=== PATIENT | female | born 1945 ===

== ENCOUNTER 2018-05-28 17:51 | Inpatient (IN) | payer MEDICAID, OTHER ==
--- NOTE | 2018-05-28 18:10 | ED PDOC ---
HPI: Seizure Time Seen by Provider: 05/28/18 18:07 Chief Complaint (Nursing): Altered Mental Status Chief Complaint (Provider): Seizure History Per: EMS, Family Additional Complaint(s): Pt BIBA after having witnessed seizure at PMD's office @ 5 PM today, foaming at mouth, + urinary incontinence. Daughter states pt c/o CANSECO since last PM, no paresthesias, no weaknesss. Pt has h/o headaches in past. Past Medical History Reviewed: Nursing Documentation, Vital Signs Vital Signs: Last Vital Signs Temp 98.7 F 05/30/18 12:00 Pulse 61 05/30/18 12:00 Resp 16 05/30/18 12:00 BP 132/61 05/30/18 12:00 Pulse Ox 94 L 05/30/18 12:00 - Medical History PMH: HTN - Family History Family History: States: Unknown Family Hx - Living Arrangements Living Arrangements: With Family - Social History Current smoker - smoking cessation education provided: No Alcohol: None - Home Medications Home Medications: Ambulatory Orders Medication Instructions Recorded Allopurinol [Zyloprim] 100 mg PO DAILY 05/28/18 Ranitidine HCl [Zantac] 150 mg PO QPM 05/28/18 amLODIPine [Norvasc] 2.5 mg PO DAILY 05/28/18 Acetaminophen [Tylenol 325mg tab] 650 mg PO Q6H PRN tab 05/30/18 Lidocaine 5% [Lidoderm] 1 ea TD DAILY #30 patch 05/30/18 traMADol [Ultram] 50 mg PO TID PRN #15 tab 05/30/18 - Allergies Allergies/Adverse Reactions: Allergies Allergy/AdvReac Type Severity Reaction Status Date / Time No Known Allergies Allergy Verified 05/28/18 17:55 Review of Systems Review Of Systems: ROS cannot be obtained secondary to pt's inabilty to answer questions. Physical Exam - Reviewed Nursing Documentation Reviewed: Yes Vital Signs Reviewed: Yes - Physical Exam Appears: Positive for: No Acute Distress (Postictal) Head Exam: Positive for: ATRAUMATIC, NORMAL INSPECTION Skin: Positive for: Normal Color, Warm, Dry Eye Exam: Positive for: Normal appearance, EOMI, PERRL Cardiovascular/Chest: Positive for: Regular Rate, Rhythm Respiratory: Positive for: Normal Breath Sounds. 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 Negative for: Alert, Oriented, Facial Droop - Laboratory Results Result Diagrams: 05/30/18 04:32 05/30/18 04:32 - ECG O2 Sat by Pulse Oximetry: 98 - Critical Care Total Time (In Min): 30 Disposition - Clinical Impression Clinical Impression: Hyponatremia, Seizure - Disposition Disposition: Transfer of Care Disposition Time: 19:00 Condition: STABLE Patient Signed Over To: Carlita Prince Handoff Comments: Pending labs.
--- NOTE | 2018-05-28 18:31 | CT ---
PROCEDURE: CT HEAD WITHOUT CONTRAST. HISTORY: New onset seizure COMPARISON: None available. TECHNIQUE: Axial computed tomography images were obtained through the head/brain without intravenous contrast. Radiation dose: Total exam DLP = 823.4 mGy-cm. This CT exam was performed using one or more of the following dose reduction techniques: Automated exposure control, adjustment of the mA and/or kV according to patient size, and/or use of iterative reconstruction technique. FINDINGS: HEMORRHAGE: No intracranial hemorrhage. BRAIN: No mass effect or edema. No atrophy or chronic microvascular ischemic changes. VENTRICLES: Unremarkable. No hydrocephalus. CALVARIUM: Unremarkable. PARANASAL SINUSES: Right maxillary sinus mucosal thickening. MASTOID AIR CELLS: Unremarkable as visualized. No inflammatory changes. OTHER FINDINGS: None. IMPRESSION: No acute intracranial pathology. Right maxillary sinus disease.
--- NOTE | 2018-05-28 19:33 | ED PDOC ---
- Laboratory Results Result Diagrams: 05/28/18 18:11 05/28/18 19:12 - ECG O2 Sat by Pulse Oximetry: 98 - Progress Re-evaluation Time: 20:00 Condition: Re-examined, Improved Medical Decision Making Medical Decision Making: Time: 1899 --Patient is endorsed to provider by Dr. Galicia, pending CT head/lab results and final disposition. Time: 1828 --CT head FINDINGS: HEMORRHAGE: No intracranial hemorrhage. BRAIN: No mass effect or edema. No atrophy or chronic microvascular ischemic changes. VENTRICLES: Unremarkable. No hydrocephalus. CALVARIUM: Unremarkable. PARANASAL SINUSES: Right maxillary sinus mucosal thickening. MASTOID AIR CELLS: Unremarkable as visualized. No inflammatory changes. OTHER FINDINGS: None. IMPRESSION: No acute intracranial pathology. Right maxillary sinus disease. Time: 2055 --Labs reviewed: Hypernatremia at 125 sodium. --Discussed case with Dr. Amaro, neurologist, whom agrees with admission. Recommends NS and potassium but no anti-seizure medications. --Will admit patient with neuro checks in ICU. --Discussed case with Dr. Eid, hospitalist. Scribe Attestation: Documented by Radha Montoya, acting as a scribe for Carlita Prince MD. Provider Scribe Attestation: All medical record entries made by the Scribe were at my direction and personally dictated by me. I have reviewed the chart and agree that the record accurately reflects my personal performance of the history, physical exam, medical decision making, and the department course for this patient. I have also personally directed, reviewed, and agree with the discharge instructions and disposition. Disposition Discussed With : Brendon Eid Doctor Will See Patient In The: ED - Clinical Impression Clinical Impression: Hyponatremia, Seizure - POA Present On Arrival: None - Disposition Disposition: Admitted as In-Patient Disposition Time: 20:00 Condition: GUARDED Critical Care Time - Critical Care Note Total Time (in mins): 30 Documented critical care: time excludes all time spent performing seperately billable procedures.
[2018-05-28 19:47] LABS: BASO % 0.4 % (0.0-2.0); EOS % 0.4 % (0.0-4.0); HEMOGLOBIN 15.7 g/dL (12.0-16.0); LYMPH # 1.8 K/uL (1.0-4.3); LYMPH % 17.4 % (20.0-40.0); MEAN CELL VOLUME 90.9 fl (81.0-99.0); MEAN CORPUSCULAR HEMOGLOBIN 31.7 pg (27.0-31.0); MEAN CORPUSCULAR HGB CONC 34.8 g/dL (33.0-37.0); MEAN PLATELET VOLUME 7.9 fl (7.2-11.7); MONO # 0.4 K/uL (0.0-0.8); MONO % 3.4 % (0.0-10.0); NEUT % 78.4 % (50.0-75.0); RBC 4.97 Mil/uL (3.80-5.20); RED CELL DISTRIBUTION WIDTH 12.5 % (11.5-14.5); WHITE BLOOD COUNT 10.3 K/uL (4.8-10.8)
[2018-05-28 19:52] LABS: ALB/GLOB RATIO 1.2 (1.0-2.1); ALBUMIN 5.1 g/dL (3.5-5.0); CALCIUM 9.4 mg/dL (8.4-10.2)
[2018-05-28] MEDS ORDERED: Sodium Chloride 0.9% 1,000 ML IV STA (19:56)
[2018-05-28 19:57] LABS: PARTIAL THROMBOPLASTIN TIME 27.4 Seconds (25.6-37.1); PROTHROMBIN TIME 10.5 Seconds (9.8-13.1)
[2018-05-28] MEDS ORDERED: Potassium Chloride 20 mEq ER Tab PO ONE ×2 (19:57→21:11)
--- NOTE | 2018-05-28 20:42 | CP.PCM.HP ---
History of Present Illness - History of Present Illness History of Present Illness: CC: new onset seizure HPI: This is a 72 y/o female with MHx significant for HTN who comes in via EMS from PCP's office where she had a seizure around 5 PM today. She did fall, and was on her back. Was c/o some CANSECO over the past day or so. Daughter states patient has never had a seizure before. No past head trauma. No f/c/n/v/d. No dysuria. Patient c/o some L shoulder pain since the seizure and fall. Of note, patient has been on Chlorthalidone for >6 months ROS: 14 systems reviewed, negative other than HPI MHx: HTN SHx: None per daughter Allergies: Daughter notes cough when she was previously on enalapril Family Hx: No relevant findings Social Hx: Lives with family, no tobacco, no EtOH Surrogate Dec Mkr: Daughter, info on chart Present on Admission - Present on Admission Any Indicators Present on Admission: No Past Patient History - Past Social History Alcohol: None - CARDIAC Hx Hypertension: Yes - PSYCHIATRIC Hx Substance Use: No Meds Allergies/Adverse Reactions: Allergies Allergy/AdvReac Type Severity Reaction Status Date / Time No Known Allergies Allergy Verified 05/28/18 17:55 Physical Exam - Constitutional Appears: No Acute Distress Additional comments: somewhat somnolent - Head Exam Head Exam: ATRAUMATIC, NORMOCEPHALIC - Eye Exam Eye Exam: EOMI, PERRL - ENT Exam ENT Exam: Mucous Membranes Moist - Neck Exam Neck exam: Positive for: Full Rom - Respiratory Exam Respiratory Exam: Clear to Auscultation Bilateral, NORMAL BREATHING PATTERN - Cardiovascular Exam Cardiovascular Exam: REGULAR RHYTHM, +S1, +S2 - GI/Abdominal Exam GI & Abdominal Exam: Normal Bowel Sounds, Soft - Extremities Exam Extremities exam: Positive for: full ROM, normal inspection Additional comments: L shoulder with some pain with movmeent - Neurological Exam Neurological exam: Alert, CN II-XII Intact, Oriented x3 - Psychiatric Exam Psychiatric exam: Normal Affect, Normal Mood - Skin Skin Exam: Dry, Warm Results - Vital Signs Recent Vital Signs: Last Vital Signs Temp 98 F 05/28/18 17:56 Pulse 58 L 05/28/18 17:56 Resp 20 05/28/18 17:56 BP 113/77 05/28/18 17:56 Pulse Ox 98 05/28/18 20:14 - Labs Result Diagrams: 05/28/18 18:11 05/28/18 19:12 Labs: Laboratory Results - last 24 hr 05/28/18 05/28/18 05/28/18 18:05 18:11 19:12 WBC 10.3 RBC 4.97 Hgb 15.7 Hct 45.2 MCV 90.9 MCH 31.7 H MCHC 34.8 RDW 12.5 Plt Count 235 MPV 7.9 Neut % (Auto) 78.4 H Lymph % (Auto) 17.4 L [place] % (Auto) 3.4 Eos % (Auto) 0.4 Baso % (Auto) 0.4 Neut # (Auto) 8.0 H Lymph # (Auto) 1.8 [place] # (Auto) 0.4 Eos # (Auto) 0.0 Baso # (Auto) 0.0 PT INR APTT Sodium 125 L Potassium 2.9 L Chloride 82 L Carbon Dioxide 22 Anion Gap 24 H BUN 15 Creatinine 1.2 Est GFR ( Amer) 54 Est GFR (Non-Af Amer) 44 POC Glucose (mg/dL) 118 H Random Glucose 111 H Calcium 9.4 Total Bilirubin 1.1 AST 62 H ALT 46 Alkaline Phosphatase 61 Lactate Dehydrogenase 646 H Total Protein 9.2 H Albumin 5.1 H Globulin 4.1 H Albumin/Globulin Ratio 1.2 05/28/18 19:12 WBC RBC Hgb Hct MCV MCH MCHC RDW Plt Count MPV Neut % (Auto) Lymph % (Auto) [place] % (Auto) Eos % (Auto) Baso % (Auto) Neut # (Auto) Lymph # (Auto) [place] # (Auto) Eos # (Auto) Baso # (Auto) PT 10.5 INR 1.0 APTT 27.4 Sodium Potassium Chloride Carbon Dioxide Anion Gap BUN Creatinine Est GFR ( Amer) Est GFR (Non-Af Amer) POC Glucose (mg/dL) Random Glucose Calcium Total Bilirubin AST ALT Alkaline Phosphatase Lactate Dehydrogenase Total Protein Albumin Globulin Albumin/Globulin Ratio - Imaging and Cardiology CT scan - head Status: Image reviewed by me, Report reviewed by me Additional comment: no acute findings Chest x-ray Status: Image reviewed by me Additional comment: no acute fidnings noted Assessment & Plan (1) Seizure Assessment and Plan: 72 y/o female with HTN with seizure in the setting of hypo-Na while taking chlorthalidone. Very likely her Hypo-Na and hypo-K is due to her Chlorthalidone as that is a known side effect. -Admit to ICU overnight -Cont IV NS + K -No AED for now per neuro, as this does not appear to be a true epileptic seizure -Neuro consult in AM -Hold chlorthalidone -SCDs for DVT PPx Status: Acute (2) Hyponatremia Status: Acute (3) HTN (hypertension) Status: Acute (4) DVT prophylaxis Status: Acute
[2018-05-28] MEDS: Potassium CL 10 MEQ/50 ML 50 ML IVPB SCH ×2 (21:28→23:03)
[2018-05-29] MEDS ORDERED: Pneumococcal 23-Valent Vaccine IM ONE (00:54)
[2018-05-29 05:57] LABS: CALCIUM 8.7 mg/dL (8.4-10.2)
[2018-05-29] MEDS: KCL 40MEQ/NS 1L 1,000 ML IV SCH ×2 (06:16→18:20)
[2018-05-29 06:56] VITALS: BMI 27.4
[2018-05-29 07:36] LABS: MEAN CELL VOLUME 89.7 fl (81.0-99.0); MEAN CORPUSCULAR HEMOGLOBIN 32.1 pg (27.0-31.0); MEAN CORPUSCULAR HGB CONC 35.8 g/dL (33.0-37.0); RBC 4.36 Mil/uL (3.80-5.20); RED CELL DISTRIBUTION WIDTH 12.4 % (11.5-14.5); WHITE BLOOD COUNT 8.8 K/uL (4.8-10.8)
--- NOTE | 2018-05-29 08:13 | RAD ---
HISTORY: Seizure COMPARISON: No prior. FINDINGS: LUNGS: Inspiratory volume appears somewhat diminished but there is no definitive infiltrate bilaterally. Bronchovascular markings appear crowded at the medial bases. PLEURA: No significant pleural effusion identified, no pneumothorax apparent. CARDIOVASCULAR: Possible cardiomegaly. Borderline pulmonary vascular congestion. OSSEOUS STRUCTURES: No significant abnormalities. VISUALIZED UPPER ABDOMEN: Normal. OTHER FINDINGS: None. IMPRESSION: Borderline pulmonary vascular congestion. Diminished inspiratory volume. No infiltrates or pleural effusions bilaterally.
[2018-05-29] MEDS ORDERED: Potassium Chloride 20 mEq ER Tab PO ONE (08:21)
--- NOTE | 2018-05-29 08:54 | RAD ---
PROCEDURE: Radiographs of the Left Shoulder HISTORY: shoulder pain COMPARISON: No prior. FINDINGS: BONES: No acute fracture or destructive bony lesion identified. JOINTS: Limited degenerative osteophyte development is seen at the acromioclavicular joint with glenohumeral joint nonfocal. No subluxation or dislocation. SOFT TISSUES: Normal. OTHER FINDINGS: None. IMPRESSION: No acute fracture or dislocation left shoulder. Degenerative changes seen at the acromioclavicular joint and appear moderate in severity.
[2018-05-29 09:37] LABS: SQUAMOUS EPITHIAL 1 /hpf (0-5); URINE BILIRUBIN NEGATIVE (NEGATIVE); URINE BLOOD SMALL (NEGATIVE); URINE CLARITY CLEAR (Clear); URINE COLOR STRAW (YELLOW); URINE GLUCOSE (UA) NEG (Normal); URINE LEUKOCYTE ESTERASE NEG Leu/uL (Negative); URINE PROTEIN NEGATIVE (NEGATIVE); URINE UROBILINOGEN 0.2-1.0 mg/dL (0.2-1.0)
--- NOTE | 2018-05-29 12:03 | CP.PCM.PN ---
Subjective - Date & Time of Evaluation Date of Evaluation: 05/29/18 Time of Evaluation: 11:30 - Subjective Subjective: Pt has no fever no CANSECO no dizziness no further seizure no neuro deficit denies CP no SOB Nausea and vomiting and Diarrhea resolved tolerated PO diet Na went up to 128 from 125 Objective - Vital Signs/Intake and Output Vital Signs (last 24 hours): Temp Pulse Resp BP Pulse Ox 98.2 F 63 11 L 117/66 100 05/29/18 08:00 05/29/18 10:00 05/29/18 10:00 05/29/18 10:00 05/29/18 10:00 Intake and Output: 05/29/18 05/29/18 06:59 18:59 Intake Total 750 Output Total 550 600 Balance 200 -600 - Medications Medications: Current Medications Acetaminophen (Tylenol 325mg Tab) 650 mg PO Q6H PRN PRN Reason: Pain, Mild (1-3) Last Admin: 05/29/18 10:08 Dose: 650 mg Allopurinol (Zyloprim) 100 mg PO DAILY [facility] Last Admin: 05/29/18 09:42 Dose: 100 mg Amlodipine Besylate (Norvasc) 2.5 mg PO DAILY [facility] Last Admin: 05/29/18 09:42 Dose: 2.5 mg Famotidine (Pepcid) 20 mg PO QPM [facility] Oral Electrolytes (Kcl 40meq/ 0.9% 1l) 1,000 mls @ 125 mls/hr IV .Q8H [facility] Last Admin: 05/29/18 06:16 Dose: 125 mls/hr Morphine Sulfate (Morphine) 1 mg IVP Q4 PRN PRN Reason: Pain, moderate (4-7) Last Admin: 05/29/18 00:12 Dose: 1 mg Ondansetron HCl (Zofran Inj) 4 mg IVP Q6 PRN PRN Reason: Nausea/Vomiting - Labs Labs: 05/29/18 05:00 05/29/18 05:00 PT 10.5 Seconds (9.8-13.1) 05/28/18 19:12 INR 1.0 (0.9-1.2) 05/28/18 19:12 APTT 27.4 Seconds (25.6-37.1) 05/28/18 19:12 - Constitutional Appears: No Acute Distress, Chronically Ill - Head Exam Head Exam: NORMAL INSPECTION, NORMOCEPHALIC - Eye Exam Eye Exam: EOMI Pupil Exam: NORMAL ACCOMODATION - ENT Exam ENT Exam: Mucous Membranes Dry, Normal External Ear Exam - Neck Exam Neck Exam: Full ROM. absent: Meningismus - Respiratory Exam Respiratory Exam: NORMAL BREATHING PATTERN. absent: Respiratory Distress - Cardiovascular Exam Cardiovascular Exam: REGULAR RHYTHM, +S1, +S2 - GI/Abdominal Exam GI & Abdominal Exam: Soft, Normal Bowel Sounds. absent: Tenderness - Extremities Exam Extremities Exam: Full ROM, Normal Capillary Refill. absent: Calf Tenderness - Back Exam Back Exam: Full ROM. absent: CVA tenderness (L), CVA tenderness (R) - Neurological Exam Neurological Exam: Alert, Awake, Oriented x3 - Psychiatric Exam Psychiatric exam: Normal Affect, Normal Mood - Skin Skin Exam: Dry, Normal Color, Warm Assessment and Plan - Assessment and Plan (Free Text) Assessment: 72 y/o female with Hx of HTN , was brought in by EMS after she had a seizure at her doctor's office. The patient has been having vomiting and diarrhea x 2 days prior to the event and so she went in to see her PMD. In the ED - labs showed Hyponatremia Na125 and Hypokalemia = 2.9, CT of the head : negative. (1) Seizure ? sec to Hyponatremia - pt was admitted to ICU -Cont IV NS + K -No AED for now per neuro, as this does not appear to be a true epileptic seizure -Neuro consult -Hold chlorthalidone -SCDs for DVT PPx - Serum and Urine Osm low - Na 125 , went up to 128 (2) Hyponatremia sec to Diuretics and GI Loss Status: Acute d/c Chlorthalidone diarrhea and vomiting resolved IVF hydration 3. Hypokalemia sec to GI Loss and Diuretics - replace with KCl (4) HTN (hypertension) Status: Acute d/c Chlorthalidone cont Norvasc (5) DVT prophylaxis Status: Acute start Lovenox
--- NOTE | 2018-05-29 15:37 | CP.CCUPN ---
CCU Subjective - Physician Review Subjective (Free Text): ICU Admission Consultation: 72F admitted overnight to ICU for witnessed seizure in PMDs office, referred to ER for eval, found to have mild HypoNa and hypokalemia. No recurrent seizure activity noted. Presently awake and alert, somewhat slow to respond, but daughter states she is at her usual baseline. No focal deficits noted, denies any headaches, nausea, dizziness, visual changes, palpitations. Other vitals and I/O's reviewed. No fever spikes nor any low grade temps last 24H. ROS: No other pertinent negs or positives on 10+ system review obtainable due to intubation. Allergies: NKDA Home Meds: Fosamax, Allopurinol, Norvasc, Hygro[place], Zantac PMSFH: Hypertension only. All other Nursing and physician documentation reviewed to date; no new pertinent info noted relevant to current medical problems. EXAM- HEENT: no icterus, no gaze preference NECK: No JVD, supple, carotids equal upstroke bilat/no bruits CHEST: decreased BS bases, no wheezes audible HEART: regular, distant, S1S2, no rubs or murmurs ABD: soft, no distention, no tympany, no palp tenderness, BS hypoactive EXT: no peripheral/ digital cyanosis, no calf tenderness or palpable cords, distal pulses intact and symmetrical. NEURO: no focal motor deficits. SKIN: no rashes, warm and dry. LABS: WBC= 8.8 HGB= 14.0 PLTs= 227K An=631 K= 3.3 CL=89 HCO3= 25 BUN/Cr=14/1.2 BS= 108 IMPRESSION / MAJOR PROBLEMS NOW: 1. New Onset Seizure Disorder 2. Hyponatremia (appears euvolemic), r/o SIADH versus Chlorthalidone-induced effect 3. Hypokalemia 4. Elevated LDH ( ?? 2 recent Seizure activity), with Hyperproteinemia, r/o occult malignancy PLAN: 1. Serum Sodium levels now above the threshold of 125, and without further seizure activity. 2. No AED tx as per Neurology. Initial CT Brain negative, CTA Head eval as per neurology. 3. Check serum / urine osmolarity; uric acid. Consider SPEP analysis. 4. No further critical care issues anticipated today, could transfer [facility] bed for further observation and mgmt / work-up. CCU Objective - Vital Signs / Intake & Output Vital Signs (Last 4 hours): Vital Signs Temp Pulse Resp BP Pulse Ox 05/29/18 14:00 69 15 97/71 L 96 05/29/18 12:00 97.9 F 63 15 113/65 97 Intake and Output (Last 8hrs): Intake & Output 05/29/18 05/29/18 05/29/18 06:59 14:59 22:59 Intake Total 750 120 Output Total 550 900 Balance 200 -780 Weight 140 lb 11.2 oz Intake: IV 750 Oral 120 Output: Urine 550 900 Urine, Voided 550 900 Stool 0 Other: # Voids Urine, Voided 1
--- NOTE | 2018-05-29 18:01 | CP.PCM.CON ---
History of Present Illness - History of Present Illness History of Present Illness: Neurology Consultation Note: Mrs. Darrian Keating is a 72-year-old woman who was brought in by EMS after having a seizure at around 5 PM yesterday. In the ED, serum sodium was 125. She was back to baseline and was started on normal saline. Repeat labs this morning showed sodium to be 128. CT scan of the head did not show any acute findings. She has not had any seizures since, but does complain of back and right arm pain. Review of Systems - Review of Systems All systems: reviewed and no additional remarkable complaints except Past Patient History - Past Social History Smoking Status: Never Smoked - CARDIAC Hx Cardiac Disorders: Yes Hx Hypertension: Yes - RENAL Hx Chronic Kidney Disease: Yes - MUSCULOSKELETAL/RHEUMATOLOGICAL Hx Falls: Yes (during seizure activity) Hx Osteoporosis: Yes - PSYCHIATRIC Hx Substance Use: No - ANESTHESIA Hx Anesthesia: No Meds Allergies/Adverse Reactions: Allergies Allergy/AdvReac Type Severity Reaction Status Date / Time No Known Allergies Allergy Verified 05/28/18 17:55 - Medications Medications: Current Medications Acetaminophen (Tylenol 325mg Tab) 650 mg PO Q6H PRN PRN Reason: Pain, Mild (1-3) Last Admin: 05/29/18 15:17 Dose: 650 mg Allopurinol (Zyloprim) 100 mg PO DAILY [facility] Last Admin: 05/29/18 09:42 Dose: 100 mg Amlodipine Besylate (Norvasc) 2.5 mg PO DAILY [facility] Last Admin: 05/29/18 09:42 Dose: 2.5 mg Enoxaparin Sodium (Lovenox) 40 mg SC DAILY [facility] PRN Reason: Protocol Famotidine (Pepcid) 20 mg PO QPM [facility] Oral Electrolytes (Kcl 40meq/ 0.9% 1l) 1,000 mls @ 125 mls/hr IV .Q8H [facility] Last Admin: 05/29/18 06:16 Dose: 125 mls/hr Morphine Sulfate (Morphine) 1 mg IVP Q4 PRN PRN Reason: Pain, moderate (4-7) Last Admin: 05/29/18 00:12 Dose: 1 mg Ondansetron HCl (Zofran Inj) 4 mg IVP Q6 PRN PRN Reason: Nausea/Vomiting Physical Exam - Neurological Exam Neurological exam: Alert, CN II-XII Intact, Oriented x3, Reflexes Normal Additional comments: Strength is symmetrical. Results - Vital Signs Recent Vital Signs: Last Vital Signs Temp 99.6 F 05/29/18 16:00 Pulse 71 05/29/18 16:00 Resp 18 05/29/18 16:00 BP 121/67 05/29/18 16:00 Pulse Ox 94 L 05/29/18 16:00 - Labs Result Diagrams: 05/29/18 05:00 05/29/18 05:00 Labs: Laboratory Results - last 24 hr 05/28/18 05/28/18 05/28/18 06:00 18:05 18:11 WBC 10.3 RBC 4.97 Hgb 15.7 Hct 45.2 MCV 90.9 MCH 31.7 H MCHC 34.8 RDW 12.5 Plt Count 235 MPV 7.9 Neut % (Auto) 78.4 H Lymph % (Auto) 17.4 L [place] % (Auto) 3.4 Eos % (Auto) 0.4 Baso % (Auto) 0.4 Neut # (Auto) 8.0 H Lymph # (Auto) 1.8 [place] # (Auto) 0.4 Eos # (Auto) 0.0 Baso # (Auto) 0.0 PT INR APTT Sodium Potassium Chloride Carbon Dioxide Anion Gap BUN Creatinine Est GFR ( Amer) Est GFR (Non-Af Amer) POC Glucose (mg/dL) 118 H Random Glucose Serum Osmolality Calcium Magnesium Total Bilirubin AST ALT Alkaline Phosphatase Lactate Dehydrogenase Total Protein Albumin Globulin Albumin/Globulin Ratio Urine Color Straw Urine Clarity Clear Urine pH 7.0 Ur Specific [place] 1.006 Urine Protein Negative Urine Glucose (UA) Neg Urine Ketones Negative Urine Blood Small Urine Nitrate Negative Urine Bilirubin Negative Urine Urobilinogen 0.2-1.0 Ur Leukocyte Esterase Neg Urine RBC (Auto) 2 Urine Microscopic WBC < 1 Ur Squamous Epith Cells 1 Urine Osmolality Ur Random Creatinine Ur Random Sodium Ur Random Potassium 05/28/18 05/28/18 05/29/18 19:12 19:12 05:00 WBC 8.8 RBC 4.36 Hgb 14.0 Hct 39.2 MCV 89.7 MCH 32.1 H MCHC 35.8 RDW 12.4 Plt Count 227 MPV Neut % (Auto) Lymph % (Auto) [place] % (Auto) Eos % (Auto) Baso % (Auto) Neut # (Auto) Lymph # (Auto) [place] # (Auto) Eos # (Auto) Baso # (Auto) PT 10.5 INR 1.0 APTT 27.4 Sodium 125 L Potassium 2.9 L Chloride 82 L Carbon Dioxide 22 Anion Gap 24 H BUN 15 Creatinine 1.2 Est GFR ( Amer) 54 Est GFR (Non-Af Amer) 44 POC Glucose (mg/dL) Random Glucose 111 H Serum Osmolality Calcium 9.4 Magnesium Total Bilirubin 1.1 AST 62 H ALT 46 Alkaline Phosphatase 61 Lactate Dehydrogenase 646 H Total Protein 9.2 H Albumin 5.1 H Globulin 4.1 H Albumin/Globulin Ratio 1.2 Urine Color Urine Clarity Urine pH Ur Specific [place] Urine Protein Urine Glucose (UA) Urine Ketones Urine Blood Urine Nitrate Urine Bilirubin Urine Urobilinogen Ur Leukocyte Esterase Urine RBC (Auto) Urine Microscopic WBC Ur Squamous Epith Cells Urine Osmolality Ur Random Creatinine Ur Random Sodium Ur Random Potassium 05/29/18 05/29/18 05/29/18 05:00 06:00 06:00 WBC RBC Hgb Hct MCV MCH MCHC RDW Plt Count MPV Neut % (Auto) Lymph % (Auto) [place] % (Auto) Eos % (Auto) Baso % (Auto) Neut # (Auto) Lymph # (Auto) [place] # (Auto) Eos # (Auto) Baso # (Auto) PT INR APTT Sodium 128 L Potassium 3.3 L Chloride 89 L Carbon Dioxide 25 Anion Gap 17 BUN 14 Creatinine 1.2 Est GFR ( Amer) 54 Est GFR (Non-Af Amer) 44 POC Glucose (mg/dL) Random Glucose 108 H Serum Osmolality Calcium 8.7 Magnesium Total Bilirubin AST ALT Alkaline Phosphatase Lactate Dehydrogenase Total Protein Albumin Globulin Albumin/Globulin Ratio Urine Color Urine Clarity Urine pH Ur Specific [place] Urine Protein Urine Glucose (UA) Urine Ketones Urine Blood Urine Nitrate Urine Bilirubin Urine Urobilinogen Ur Leukocyte Esterase Urine RBC (Auto) Urine Microscopic WBC Ur Squamous Epith Cells Urine Osmolality 210 L Ur Random Creatinine 27 Ur Random Sodium 46 Ur Random Potassium 23.7 05/29/18 05/29/18 07:15 07:15 WBC RBC Hgb Hct MCV MCH MCHC RDW Plt Count MPV Neut % (Auto) Lymph % (Auto) [place] % (Auto) Eos % (Auto) Baso % (Auto) Neut # (Auto) Lymph # (Auto) [place] # (Auto) Eos # (Auto) Baso # (Auto) PT INR APTT Sodium Potassium Chloride Carbon Dioxide Anion Gap BUN Creatinine Est GFR ( Amer) Est GFR (Non-Af Amer) POC Glucose (mg/dL) Random Glucose Serum Osmolality 271 L Calcium Magnesium 2.1 Total Bilirubin AST ALT Alkaline Phosphatase Lactate Dehydrogenase Total Protein Albumin Globulin Albumin/Globulin Ratio Urine Color Urine Clarity Urine pH Ur Specific [place] Urine Protein Urine Glucose (UA) Urine Ketones Urine Blood Urine Nitrate Urine Bilirubin Urine Urobilinogen Ur Leukocyte Esterase Urine RBC (Auto) Urine Microscopic WBC Ur Squamous Epith Cells Urine Osmolality Ur Random Creatinine Ur Random Sodium Ur Random Potassium Assessment & Plan (1) Hyponatremia Assessment and Plan: Seizure is secondary to hyponatremia. Correction of electrolyte disturbances and treatment of underlying cause is recommended. No AED is needed at this time. No further neurological work-up is needed. Thank you. Status: Acute Priority: High (2) Seizure Status: Acute Priority: High
[2018-05-30] MEDS: KCL 40MEQ/NS 1L 1,000 ML IV SCH ×2 (00:20→04:45)
[2018-05-30] MEDS: Oxycodone/Acetaminophen 5/325 mg Tab PO PRN ×2 (03:08→10:36)
[2018-05-30 05:33] LABS: BASO % 0.4 % (0.0-2.0); EOS # 0.1 K/uL (0.0-0.7); EOS % 1.2 % (0.0-4.0); HEMOGLOBIN 13.8 g/dL (12.0-16.0); LYMPH # 1.4 K/uL (1.0-4.3); MEAN CELL VOLUME 91.8 fl (81.0-99.0); MEAN CORPUSCULAR HEMOGLOBIN 32.4 pg (27.0-31.0); MEAN CORPUSCULAR HGB CONC 35.3 g/dL (33.0-37.0); MEAN PLATELET VOLUME 7.9 fl (7.2-11.7); MONO # 0.5 K/uL (0.0-0.8); MONO % 6.3 % (0.0-10.0); NEUT # 6.1 K/uL (1.8-7.0); NEUT % 75.1 % (50.0-75.0); RBC 4.27 Mil/uL (3.80-5.20); RED CELL DISTRIBUTION WIDTH 12.9 % (11.5-14.5); WHITE BLOOD COUNT 8.1 K/uL (4.8-10.8)
[2018-05-30 05:46] LABS: ALB/GLOB RATIO 1.3 (1.0-2.1); ALBUMIN 4.1 g/dL (3.5-5.0); CALCIUM 8.8 mg/dL (8.4-10.2)
[2018-05-30] MEDS ORDERED: Oxycodone/Acetaminophen 5/325 mg Tab PO ONE (06:53)
--- NOTE | 2018-05-30 07:35 | CP.CCUPN ---
CCU Subjective - Physician Review Events Since Last Encounter (Free Text): 05/30/18 07:33 Doesn't speak Azeri, but spoke to her with the help of grand daughter. 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 Has been given multiple pain medication over last 12 H. CCU Objective - Vital Signs / Intake & Output Vital Signs (Last 4 hours): Vital Signs Temp Pulse Resp BP Pulse Ox 05/30/18 06:00 54 L 13 125/69 92 L 05/30/18 04:00 98.4 F 55 L 8 L 104/52 L 93 L Intake and Output (Last 8hrs): Intake & Output 05/29/18 05/30/18 05/30/18 22:59 06:59 14:59 Intake Total 495 1000 Output Total 300 Balance 195 1000 Intake: IV 375 1000 Oral 120 Output: Urine 300 Urine, Voided 300 Other: # Voids Urine, Voided 1 1 - Physical Exam Narrative Physical Exam (Free Text): 05/30/18 07:35 P/E Neck: No JVD Lungs: No ronchi or crackles Abdomen: soft, non-tender Ext: No edema Heart: No gallop - Medications Active Medications: Active Medications Generic Name Dose Route Start Last Admin Trade Name Freq PRN Reason Stop Dose Admin Acetaminophen 650 mg 05/28/18 20:39 05/30/18 00:59 Tylenol 325mg Tab PO 650 mg Q6H PRN Administration Pain, Mild (1-3) Allopurinol 100 mg 05/29/18 09:00 05/29/18 09:42 Zyloprim PO 100 mg DAILY MATIAS Administration Amlodipine Besylate 2.5 mg 05/29/18 09:00 05/29/18 09:42 Norvasc PO 2.5 mg DAILY MATIAS Administration Enoxaparin Sodium 40 mg 05/30/18 09:00 Lovenox SC DAILY MATIAS Protocol Famotidine 20 mg 05/29/18 18:00 05/29/18 18:20 Pepcid PO 20 mg QPM MATIAS Administration Oral Electrolytes 1,000 mls @ 125 mls/hr 05/28/18 20:45 05/30/18 04:45 Kcl 40meq/ 0.9% 1l IV Not Given .Q8H MATIAS Morphine Sulfate 1 mg 05/30/18 07:29 Morphine IVP 05/30/18 07:30 ONCE ONE Ondansetron HCl 4 mg 05/28/18 22:09 Zofran Inj IVP Q6 PRN Nausea/Vomiting Oxycodone/Acetaminophen 1 tab 05/30/18 02:53 05/30/18 03:08 Percocet 5/325 Mg Tab PO 06/02/18 02:54 1 tab Q6 PRN Administration Pain, moderate (4-7) - Patient Studies Lab Studies: Lab Studies 05/30/18 05/30/18 05/29/18 Range/Units 04:32 04:32 07:15 WBC 8.1 (4.8-10.8) K/uL RBC 4.27 (3.80-5.20) Mil/uL Hgb 13.8 (12.0-16.0) g/dL Hct 39.2 (34.0-47.0) % MCV 91.8 D (81.0-99.0) fl MCH 32.4 H (27.0-31.0) pg MCHC 35.3 (33.0-37.0) g/dL RDW 12.9 (11.5-14.5) % Plt Count 198 (130-400) K/uL MPV 7.9 (7.2-11.7) fl Neut % (Auto) 75.1 H (50.0-75.0) % Lymph % (Auto) 17.0 L (20.0-40.0) % [place] % (Auto) 6.3 (0.0-10.0) % Eos % (Auto) 1.2 (0.0-4.0) % Baso % (Auto) 0.4 (0.0-2.0) % Neut # (Auto) 6.1 (1.8-7.0) K/uL Lymph # (Auto) 1.4 (1.0-4.3) K/uL [place] # (Auto) 0.5 (0.0-0.8) K/uL Eos # (Auto) 0.1 (0.0-0.7) K/uL Baso # (Auto) 0.0 (0.0-0.2) K/uL Sodium 137 (132-148) mmol/l Potassium 4.6 (3.6-5.0) MMOL/L Chloride 105 (98-107) mmol/L Carbon Dioxide 21 L (22-30) mmol/L Anion Gap 16 (10-20) BUN 13 (7-17) mg/dl Creatinine 1.2 (0.7-1.2) mg/dl Est GFR ( Amer) 54 Est GFR (Non-Af Amer) 44 Random Glucose 97 (65-105) mg/dL Serum Osmolality 271 L (272-300) mosm/kg Calcium 8.8 (8.4-10.2) mg/dL Magnesium (1.6-2.3) MG/DL Total Bilirubin 0.9 (0.2-1.3) mg/dl AST 54 H (14-36) U/L ALT 47 (9-52) U/L Alkaline Phosphatase 56 (38-126) U/L Total Protein 7.3 (6.3-8.2) G/DL Albumin 4.1 (3.5-5.0) g/dL Globulin 3.2 (2.2-3.9) gm/dL Albumin/Globulin Ratio 1.3 (1.0-2.1) Urine Color (YELLOW) Urine Clarity (Clear) Urine pH (5.0-8.0) Ur Specific [place] (1.003-1.030) Urine Protein (NEGATIVE) mg/dL Urine Glucose (UA) (Normal) mg/dL Urine Ketones (NEGATIVE) mg/dL Urine Blood (NEGATIVE) Urine Nitrate (NEGATIVE) Urine Bilirubin (NEGATIVE) Urine Urobilinogen (0.2-1.0) mg/dL Ur Leukocyte Esterase (Negative) Meri/uL Urine RBC (Auto) (0-3) /hpf Urine Microscopic WBC (0-5) /hpf Ur Squamous Epith Cells (0-5) /hpf Urine Osmolality (300-1000) mosm/kg Ur Random Creatinine mg/dL Ur Random Sodium meq/L Ur Random Potassium mmol/L 05/29/18 05/29/18 05/29/18 Range/Units 07:15 06:00 06:00 WBC (4.8-10.8) K/uL RBC (3.80-5.20) Mil/uL Hgb (12.0-16.0) g/dL Hct (34.0-47.0) % MCV (81.0-99.0) fl MCH (27.0-31.0) pg MCHC (33.0-37.0) g/dL RDW (11.5-14.5) % Plt Count (130-400) K/uL MPV (7.2-11.7) fl Neut % (Auto) (50.0-75.0) % Lymph % (Auto) (20.0-40.0) % Dixon % (Auto) (0.0-10.0) % Eos % (Auto) (0.0-4.0) % Baso % (Auto) (0.0-2.0) % Neut # (Auto) (1.8-7.0) K/uL Lymph # (Auto) (1.0-4.3) K/uL [place] # (Auto) (0.0-0.8) K/uL Eos # (Auto) (0.0-0.7) K/uL Baso # (Auto) (0.0-0.2) K/uL Sodium (132-148) mmol/l Potassium (3.6-5.0) MMOL/L Chloride (98-107) mmol/L Carbon Dioxide (22-30) mmol/L Anion Gap (10-20) BUN (7-17) mg/dl Creatinine (0.7-1.2) mg/dl Est GFR ( Amer) Est GFR (Non-Af Amer) Random Glucose (65-105) mg/dL Serum Osmolality (272-300) mosm/kg Calcium (8.4-10.2) mg/dL Magnesium 2.1 (1.6-2.3) MG/DL Total Bilirubin (0.2-1.3) mg/dl AST (14-36) U/L ALT (9-52) U/L Alkaline Phosphatase (38-126) U/L Total Protein (6.3-8.2) G/DL Albumin (3.5-5.0) g/dL Globulin (2.2-3.9) gm/dL Albumin/Globulin Ratio (1.0-2.1) Urine Color (YELLOW) Urine Clarity (Clear) Urine pH (5.0-8.0) Ur Specific [place] (1.003-1.030) Urine Protein (NEGATIVE) mg/dL Urine Glucose (UA) (Normal) mg/dL Urine Ketones (NEGATIVE) mg/dL Urine Blood (NEGATIVE) Urine Nitrate (NEGATIVE) Urine Bilirubin (NEGATIVE) Urine Urobilinogen (0.2-1.0) mg/dL Ur Leukocyte Esterase (Negative) Meri/uL Urine RBC (Auto) (0-3) /hpf Urine Microscopic WBC (0-5) /hpf Ur Squamous Epith Cells (0-5) /hpf Urine Osmolality 210 L (300-1000) mosm/kg Ur Random Creatinine 27 mg/dL Ur Random Sodium 46 meq/L Ur Random Potassium 23.7 mmol/L 05/29/18 05/28/18 Range/Units 05:00 06:00 WBC 8.8 (4.8-10.8) K/uL RBC 4.36 (3.80-5.20) Mil/uL Hgb 14.0 (12.0-16.0) g/dL Hct 39.2 (34.0-47.0) % MCV 89.7 (81.0-99.0) fl MCH 32.1 H (27.0-31.0) pg MCHC 35.8 (33.0-37.0) g/dL RDW 12.4 (11.5-14.5) % Plt Count 227 (130-400) K/uL MPV (7.2-11.7) fl Neut % (Auto) (50.0-75.0) % Lymph % (Auto) (20.0-40.0) % Dixon % (Auto) (0.0-10.0) % Eos % (Auto) (0.0-4.0) % Baso % (Auto) (0.0-2.0) % Neut # (Auto) (1.8-7.0) K/uL Lymph # (Auto) (1.0-4.3) K/uL [place] # (Auto) (0.0-0.8) K/uL Eos # (Auto) (0.0-0.7) K/uL Baso # (Auto) (0.0-0.2) K/uL Sodium (132-148) mmol/l Potassium (3.6-5.0) MMOL/L Chloride (98-107) mmol/L Carbon Dioxide (22-30) mmol/L Anion Gap (10-20) BUN (7-17) mg/dl Creatinine (0.7-1.2) mg/dl Est GFR ( Amer) Est GFR (Non-Af Amer) Random Glucose (65-105) mg/dL Serum Osmolality (272-300) mosm/kg Calcium (8.4-10.2) mg/dL Magnesium (1.6-2.3) MG/DL Total Bilirubin (0.2-1.3) mg/dl AST (14-36) U/L ALT (9-52) U/L Alkaline Phosphatase (38-126) U/L Total Protein (6.3-8.2) G/DL Albumin (3.5-5.0) g/dL Globulin (2.2-3.9) gm/dL Albumin/Globulin Ratio (1.0-2.1) Urine Color Straw (YELLOW) Urine Clarity Clear (Clear) Urine pH 7.0 (5.0-8.0) Ur Specific [place] 1.006 (1.003-1.030) Urine Protein Negative (NEGATIVE) mg/dL Urine Glucose (UA) Neg (Normal) mg/dL Urine Ketones Negative (NEGATIVE) mg/dL Urine Blood Small (NEGATIVE) Urine Nitrate Negative (NEGATIVE) Urine Bilirubin Negative (NEGATIVE) Urine Urobilinogen 0.2-1.0 (0.2-1.0) mg/dL Ur Leukocyte Esterase Neg (Negative) Meri/uL Urine RBC (Auto) 2 (0-3) /hpf Urine Microscopic WBC < 1 (0-5) /hpf Ur Squamous Epith Cells 1 (0-5) /hpf Urine Osmolality (300-1000) mosm/kg Ur Random Creatinine mg/dL Ur Random Sodium meq/L Ur Random Potassium mmol/L Laboratory Results - last 24 hr 05/28/18 05/29/18 05/29/18 06:00 05:00 06:00 WBC 8.8 RBC 4.36 Hgb 14.0 Hct 39.2 MCV 89.7 MCH 32.1 H MCHC 35.8 RDW 12.4 Plt Count 227 MPV Neut % (Auto) Lymph % (Auto) [place] % (Auto) Eos % (Auto) Baso % (Auto) Neut # (Auto) Lymph # (Auto) [place] # (Auto) Eos # (Auto) Baso # (Auto) Sodium Potassium Chloride Carbon Dioxide Anion Gap BUN Creatinine Est GFR ( Amer) Est GFR (Non-Af Amer) Random Glucose Serum Osmolality Calcium Magnesium Total Bilirubin AST ALT Alkaline Phosphatase Total Protein Albumin Globulin Albumin/Globulin Ratio Urine Color Straw Urine Clarity Clear Urine pH 7.0 Ur Specific [place] 1.006 Urine Protein Negative Urine Glucose (UA) Neg Urine Ketones Negative Urine Blood Small Urine Nitrate Negative Urine Bilirubin Negative Urine Urobilinogen 0.2-1.0 Ur Leukocyte Esterase Neg Urine RBC (Auto) 2 Urine Microscopic WBC < 1 Ur Squamous Epith Cells 1 Urine Osmolality Ur Random Creatinine 27 Ur Random Sodium Ur Random Potassium 05/29/18 05/29/18 05/29/18 06:00 07:15 07:15 WBC RBC Hgb Hct MCV MCH MCHC RDW Plt Count MPV Neut % (Auto) Lymph % (Auto) Dixon % (Auto) Eos % (Auto) Baso % (Auto) Neut # (Auto) Lymph # (Auto) Dixon # (Auto) Eos # (Auto) Baso # (Auto) Sodium Potassium Chloride Carbon Dioxide Anion Gap BUN Creatinine Est GFR ( Amer) Est GFR (Non-Af Amer) Random Glucose Serum Osmolality 271 L Calcium Magnesium 2.1 Total Bilirubin AST ALT Alkaline Phosphatase Total Protein Albumin Globulin Albumin/Globulin Ratio Urine Color Urine Clarity Urine pH Ur Specific [place] Urine Protein Urine Glucose (UA) Urine Ketones Urine Blood Urine Nitrate Urine Bilirubin Urine Urobilinogen Ur Leukocyte Esterase Urine RBC (Auto) Urine Microscopic WBC Ur Squamous Epith Cells Urine Osmolality 210 L Ur Random Creatinine Ur Random Sodium 46 Ur Random Potassium 23.7 05/30/18 05/30/18 04:32 04:32 WBC 8.1 RBC 4.27 Hgb 13.8 Hct 39.2 MCV 91.8 D MCH 32.4 H MCHC 35.3 RDW 12.9 Plt Count 198 MPV 7.9 Neut % (Auto) 75.1 H Lymph % (Auto) 17.0 L Dixon % (Auto) 6.3 Eos % (Auto) 1.2 Baso % (Auto) 0.4 Neut # (Auto) 6.1 Lymph # (Auto) 1.4 Dixon # (Auto) 0.5 Eos # (Auto) 0.1 Baso # (Auto) 0.0 Sodium 137 Potassium 4.6 Chloride 105 Carbon Dioxide 21 L Anion Gap 16 BUN 13 Creatinine 1.2 Est GFR ( Amer) 54 Est GFR (Non-Af Amer) 44 Random Glucose 97 Serum Osmolality Calcium 8.8 Magnesium Total Bilirubin 0.9 AST 54 H ALT 47 Alkaline Phosphatase 56 Total Protein 7.3 Albumin 4.1 Globulin 3.2 Albumin/Globulin Ratio 1.3 Urine Color Urine Clarity Urine pH Ur Specific [place] Urine Protein Urine Glucose (UA) Urine Ketones Urine Blood Urine Nitrate Urine Bilirubin Urine Urobilinogen Ur Leukocyte Esterase Urine RBC (Auto) Urine Microscopic WBC Ur Squamous Epith Cells Urine Osmolality Ur Random Creatinine Ur Random Sodium Ur Random Potassium Fingerstick Blood Sugar Results: 118 Critical Care Progress Note - Nutrition Nutrition: Nutrition Category Date Time Status Heart Healthy Diet [DIET] Diets 05/29/18 Breakfast Active Assessment/Plan - Assessment and Plan (Free Text) Assessment: IMPRESSION / MAJOR PROBLEMS NOW: 1. New Onset Seizure Disorder: no seizure activity in last 24 H. 2. Hyponatremia due to Chlorthalidone : Improved 3. Hypokalemia : due to cholrthiazide: Improved 4. HTN: well controlled PLAN: 1. Continue current meds, continue to monitor electrolytes 2. No AED tx as per Neurology. Initial CT Brain negative, CTA Head eval as per neurology. 4. No further critical care issues anticipated today, [facility] . CCU Objective
[2018-05-30] MEDS ORDERED: Enoxaparin 40 mg Syringe SC SCH (09:00)
--- NOTE | 2018-05-30 11:40 | RAD ---
HISTORY: back pain COMPARISON: No prior. FINDINGS: BONES: Alignment maintained. No fracture. DISC SPACES: Multilevel disc space narrowing with endplate changes. SOFT TISSUES: Normal. OTHER FINDINGS: None. IMPRESSION: No acute fracture. Multilevel degenerative changes.
--- NOTE | 2018-05-30 11:40 | RAD ---
HISTORY: eval for PNA, PVC COMPARISON: Chest radiograph dated 05/28/2018. TECHNIQUE: Chest PA and lateral FINDINGS: LUNGS: No active pulmonary disease. PLEURA: No significant pleural effusion identified. No pneumothorax apparent. CARDIOVASCULAR: Atherosclerotic aortic calcifications. Cardiomediastinal silhouette stably enlarged. OSSEOUS STRUCTURES: Unchanged. VISUALIZED UPPER ABDOMEN: Normal. OTHER FINDINGS: None. IMPRESSION: No active disease.
--- NOTE | 2018-05-30 11:41 | RAD ---
PROCEDURE: Radiographs of the Lumbar Spine. HISTORY: back pain COMPARISON: No prior. FINDINGS: BONES: Normal alignment. No listhesis. No fracture. DISC SPACES: Multilevel disc space narrowing with mild endplate changes. OTHER FINDINGS: None. IMPRESSION: No acute fracture. Multilevel degenerative changes.
[2018-05-30 12:36] VITALS: BP 132/61; PULSE 61; RESP 16; TEMP 98.7
[2018-05-30] MEDS ORDERED: Lidocaine 5% Patch TD SCH (12:45)
--- NOTE | 2018-05-30 12:46 | CP.PCM.DIS ---
Provider - Provider Date of Admission: 05/28/18 20:36 Attending physician: Brendon Eid MD Primary care physician: Dr Jarquin Consults: Neurology: Dr Farley Time Spent in preparation of Discharge (in minutes): 40 Diagnosis - Discharge Diagnosis (1) Seizure Status: Acute Priority: High (2) Hyponatremia Status: Acute Priority: High (3) Hypokalemia due to loss of potassium Status: Acute (4) HTN (hypertension) Status: Chronic (5) Back pain Status: Acute Hospital Course - Lab Results Lab Results: Most Recent Lab Values WBC 8.1 K/uL (4.8-10.8) 05/30/18 04:32 RBC 4.27 Mil/uL (3.80-5.20) 05/30/18 04:32 Hgb 13.8 g/dL (12.0-16.0) 05/30/18 04:32 Hct 39.2 % (34.0-47.0) 05/30/18 04:32 MCV 91.8 fl (81.0-99.0) D 05/30/18 04:32 MCH 32.4 pg (27.0-31.0) H 05/30/18 04:32 MCHC 35.3 g/dL (33.0-37.0) 05/30/18 04:32 RDW 12.9 % (11.5-14.5) 05/30/18 04:32 Plt Count 198 K/uL (130-400) 05/30/18 04:32 MPV 7.9 fl (7.2-11.7) 05/30/18 04:32 Neut % (Auto) 75.1 % (50.0-75.0) H 05/30/18 04:32 Lymph % (Auto) 17.0 % (20.0-40.0) L 05/30/18 04:32 [place] % (Auto) 6.3 % (0.0-10.0) 05/30/18 04:32 Eos % (Auto) 1.2 % (0.0-4.0) 05/30/18 04:32 Baso % (Auto) 0.4 % (0.0-2.0) 05/30/18 04:32 Neut # (Auto) 6.1 K/uL (1.8-7.0) 05/30/18 04:32 Lymph # (Auto) 1.4 K/uL (1.0-4.3) 05/30/18 04:32 [place] # (Auto) 0.5 K/uL (0.0-0.8) 05/30/18 04:32 Eos # (Auto) 0.1 K/uL (0.0-0.7) 05/30/18 04:32 Baso # (Auto) 0.0 K/uL (0.0-0.2) 05/30/18 04:32 PT 10.5 Seconds (9.8-13.1) 05/28/18 19:12 INR 1.0 (0.9-1.2) 05/28/18 19:12 APTT 27.4 Seconds (25.6-37.1) 05/28/18 19:12 Sodium 137 mmol/l (132-148) 05/30/18 04:32 Potassium 4.6 MMOL/L (3.6-5.0) 05/30/18 04:32 Chloride 105 mmol/L (98-107) 05/30/18 04:32 Carbon Dioxide 21 mmol/L (22-30) L 05/30/18 04:32 Anion Gap 16 (10-20) 05/30/18 04:32 BUN 13 mg/dl (7-17) 05/30/18 04:32 Creatinine 1.2 mg/dl (0.7-1.2) 05/30/18 04:32 Est GFR ( Amer) 54 05/30/18 04:32 Est GFR (Non-Af Amer) 44 05/30/18 04:32 POC Glucose (mg/dL) 118 mg/dL (65-110) H 05/28/18 18:05 Random Glucose 97 mg/dL (65-105) 05/30/18 04:32 Serum Osmolality 271 mosm/kg (272-300) L 05/29/18 07:15 Calcium 8.8 mg/dL (8.4-10.2) 05/30/18 04:32 Magnesium 2.1 MG/DL (1.6-2.3) 05/29/18 07:15 Total Bilirubin 0.9 mg/dl (0.2-1.3) 05/30/18 04:32 AST 54 U/L (14-36) H 05/30/18 04:32 ALT 47 U/L (9-52) 05/30/18 04:32 Alkaline Phosphatase 56 U/L (38-126) 05/30/18 04:32 Lactate Dehydrogenase 646 U/L (313-618) H 05/28/18 19:12 Total Protein 7.3 G/DL (6.3-8.2) 05/30/18 04:32 Albumin 4.1 g/dL (3.5-5.0) 05/30/18 04:32 Globulin 3.2 gm/dL (2.2-3.9) 05/30/18 04:32 Albumin/Globulin Ratio 1.3 (1.0-2.1) 05/30/18 04:32 Urine Color Straw (YELLOW) 05/28/18 06:00 Urine Clarity Clear (Clear) 05/28/18 06:00 Urine pH 7.0 (5.0-8.0) 05/28/18 06:00 Ur Specific Sulphur 1.006 (1.003-1.030) 05/28/18 06:00 Urine Protein Negative mg/dL (NEGATIVE) 05/28/18 06:00 Urine Glucose (UA) Neg mg/dL (Normal) 05/28/18 06:00 Urine Ketones Negative mg/dL (NEGATIVE) 05/28/18 06:00 Urine Blood Small (NEGATIVE) 05/28/18 06:00 Urine Nitrate Negative (NEGATIVE) 05/28/18 06:00 Urine Bilirubin Negative (NEGATIVE) 05/28/18 06:00 Urine Urobilinogen 0.2-1.0 mg/dL (0.2-1.0) 05/28/18 06:00 Ur Leukocyte Esterase Neg Meri/uL (Negative) 05/28/18 06:00 Urine RBC (Auto) 2 /hpf (0-3) 05/28/18 06:00 Urine Microscopic WBC < 1 /hpf (0-5) 05/28/18 06:00 Ur Squamous Epith Cells 1 /hpf (0-5) 05/28/18 06:00 Urine Osmolality 210 mosm/kg (300-1000) L 05/29/18 06:00 Ur Random Creatinine 27 mg/dL 05/29/18 06:00 Ur Random Sodium 46 meq/L 05/29/18 06:00 Ur Random Potassium 23.7 mmol/L 05/29/18 06:00 - Hospital Course Hospital Course: 72 y/o female with Hx of HTN , was brought in by EMS after she had a seizure at her doctor's office. The patient has been having vomiting and diarrhea x 2 days prior to the event and so she went in to see her PMD. She was witnessed to have a seizure at her PMD's office. Diarrhea and vomiting has resolved. In the ED - labs showed Hyponatremia Na =125 and Hypokalemia = 2.9, CT of the head : negative. Pt was admitted to the ICU , started on IVF hydration with NS. No further seizure i the hospital. Sodium and Potassium normalized. Neurology consulted - likely seizure due to Hyponatremia. (1) Seizure likely sec to Hyponatremia - pt was admitted to ICU -IVF : NS + K -No AED for now per neuro, as this does not appear to be a true epileptic seizure -Neuro consulted -d/c chlorthalidone - Serum and Urine Osm low - Na 125 on admission now normal - tolerating PO diet - EEG done (2) Hyponatremia sec to Diuretics and GI Loss Status: Acute d/c Chlorthalidone diarrhea and vomiting resolved IVF hydration 3. Hypokalemia sec to GI Loss and Diuretics - replaced with KCl (4) HTN (hypertension) Status: Acute d/c Chlorthalidone cont Norvasc 5. Back Pain prob sec to Degen Joint Dis accdg to family , no hx of trauma CXR : neg Thoracic Spine, LS spine, Shoulder xray : no fracture , OA Pain mgt- Lidoderm patch, Ultram ff up with PMD for further eval PT eval - rec Walker DVT prophylaxis Status: Acute Lovenox Discharge Exam - Head Exam Head Exam: ATRAUMATIC, NORMAL INSPECTION, NORMOCEPHALIC - Eye Exam Eye Exam: EOMI, Normal appearance Pupil Exam: NORMAL ACCOMODATION - ENT Exam ENT Exam: Mucous Membranes Moist, Normal External Ear Exam - Neck Exam Neck exam: Full Rom - Respiratory Exam Respiratory Exam: NORMAL BREATHING PATTERN. absent: Respiratory Distress - Cardiovascular Exam Cardiovascular Exam: REGULAR RHYTHM, +S1, +S2 - GI/Abdominal Exam GI & Abdominal Exam: Normal Bowel Sounds, Soft. absent: Tenderness - Extremities Exam Extremities exam: full ROM, normal capillary refill, pedal pulses present - Back Exam Back exam: FULL ROM. absent: CVA tenderness (L), CVA tenderness (R) - Neurological Exam Neurological exam: Alert, Oriented x3, Reflexes Normal - Psychiatric Exam Psychiatric exam: Flat Affect, Normal Mood - Skin Skin Exam: Dry, Normal Color, Warm Discharge Plan - Discharge Medications Prescriptions: Lidocaine 5% [Lidoderm] 1 ea TD DAILY #30 patch traMADol [Ultram] 50 mg PO TID PRN #15 tab PRN Reason: Pain, Moderate (4-7) - Follow Up Plan Condition: GOOD Disposition: HOME/ ROUTINE Instructions: Hypokalemia (DC), Hyponatremia (DC) Additional Instructions: Do not take Chlorthalidone ff up with PMD dagoberto Referrals: Idris Jarquin MD [Medical Doctor] -
[2018-06-01 11:38] VITALS: O2SAT 98
--- NOTE | 2018-06-01 21:29 | CARD ---
APPROVED REPORT EKG Measurement Heart [id number] <Conclusion> Sinus bradycardia with 1st degree AV block Incomplete right bundle branch block Borderline ECG
== END 2018-05-30 14:31 | disposition home or self-care (01) | DRG 101 ==
LOC: H.ER 17:51 → H.ERHOLD 20:36 → H.ICU/CCU 23:49
PROVIDERS: ADMIT Internal Medicine; ATTEND Internal Medicine
PROC: 3E0234Z Introduction of Serum, Toxoid and Vaccine into Muscle, Percutaneous Approach (ICD-10-PCS; principal; 2018-05-29)
DX: G40.802 Other epilepsy, not intractable, without status epilepticus (principal); E87.1 Hypo-osmolality and hyponatremia; E87.6 Hypokalemia; I10 Essential (primary) hypertension; J32.0 Chronic maxillary sinusitis; R74.0 Nonspecific elevation of levels of transaminase and lactic acid dehydrogenase [LDH]; M81.0 Age-related osteoporosis without current pathological fracture; M54.5 Low back pain; Z23 Encounter for immunization